=== PATIENT | female | born 1960 | race Asian ===

== ENCOUNTER 2020-11-04 16:31 | Emergency (ER) | payer OTHER ==
[~2020-11-04] VITALS: Ht 160 cm; Wt 59.1 kg
[2020-11-04 16:33] VITALS: BP 155/79
[2020-11-04] MEDS ORDERED: LEVO125T95 PO (16:38)
[2020-11-04] MEDS ORDERED: LOSA50TA37 PO (16:38)
[2020-11-04] MEDS ORDERED: OMEP20 PO (16:39)
[2020-11-04] MEDS ORDERED: ZINC50TA71 PO (16:39)
[2020-11-04] MEDS ORDERED: HYDR200T38 PO (16:40)
[2020-11-04] MEDS ORDERED: CETI-193 PO (16:40)
[2020-11-04] MEDS ORDERED: PRED20 PO (16:41)
[2020-11-04] MEDS ORDERED: DEXAMETHASONE SOD PHOS 4 MG/ML 5 ML VIAL IM ONE (17:15)
[2020-11-04] MEDS ORDERED: FAMOTIDINE 20 MG TABLET PO ONE (17:15)
[2020-11-04] MEDS ORDERED: DiphenhydrAMINE HCL 25 MG CAPSULE PO ONE (17:15)
== END 2020-11-04 18:58 | disposition home or self-care (01) ==
LOC: EMS 16:33
DX: L50.9 Urticaria, unspecified (principal)
CPT/HCPCS: 96372; 99283; J1100